=== PATIENT | female | born 1985 | race Caucasian/White ===

== ENCOUNTER 2017-04-07 19:45 | Observation (INO) | payer MEDICAID ==
[~2017-04-07 19:45] MED LIST: ALPR1TAB2 PO; PREN-125 OR; VENL25TA2 PO
== END 2017-04-07 21:13 | disposition home or self-care (01) | DRG 566 ==
LOC: LDRP 19:45
PROVIDERS: ADMIT Specialist; ATTEND Specialist
DX: O62.9 Abnormality of forces of labor, unspecified (principal); O26.893 Other specified pregnancy related conditions, third trimester; R42 Dizziness and giddiness; R10.30 Lower abdominal pain, unspecified; Z3A.33 33 weeks gestation of pregnancy
CPT/HCPCS: 59025; 76815; 80307; 81002; G0378

== ENCOUNTER 2017-04-19 13:20 | Observation (INO) | payer MEDICAID | END 2017-04-19 15:05 | disposition home or self-care (01) | DRG 566 | LOC: LDRP 13:20 | PROVIDERS: ADMIT Specialist; ATTEND Specialist | DX: O36.8130 Decreased fetal movements, third trimester, not applicable or unspecified (principal); Z3A.35 35 weeks gestation of pregnancy | CPT/HCPCS: 59025; 76818; 81002; G0378 ==

== ENCOUNTER 2017-04-28 10:35 | Observation (INO) | payer MEDICAID | END 2017-04-28 11:45 | disposition home or self-care (01) | DRG 563 | LOC: LDRP 10:35 | PROVIDERS: ADMIT Specialist; ATTEND Specialist | DX: O60.03 Preterm labor without delivery, third trimester (principal); Z87.891 Personal history of nicotine dependence; Z3A.36 36 weeks gestation of pregnancy | CPT/HCPCS: 59025; 81002; G0378 ==

== ENCOUNTER 2017-05-04 11:00 | Observation (INO) | payer MEDICAID | END 2017-05-04 12:00 | disposition home or self-care (01) | DRG 563 | LOC: LDRP 11:00 | PROVIDERS: ADMIT Obstetrics & Gynecology; ATTEND Obstetrics & Gynecology | DX: O60.03 Preterm labor without delivery, third trimester (principal); Z3A.37 37 weeks gestation of pregnancy | CPT/HCPCS: 59025; 81002; G0378 ==

== ENCOUNTER 2018-08-08 11:50 | Emergency (ER) | payer MEDICAID ==
[~2018-08-08] VITALS: Ht 160 cm; Wt 84.4 kg
[~2018-08-08 11:50] MED LIST changes: -VENL25TA2 PO
[2018-08-08 12:53] LABS: Urine Bacteria NONE SEEN /hpf (None Seen); Urine Blood Negative /uL (Negative); Urine Mucus FEW (None Seen); Urine Specific Gravity 1.021 (1.001-1.035); Urine WBC 3 /hpf (0 - 5)
[2018-08-08 13:27] LABS: Basophils # (auto) 0 uL; Basophils % (auto) 0.4 % (0.0-2.0); Eosinophils # (auto) 0.2 uL; Eosinophils % (auto) 5.4 % (0.0-7.0); Hematocrit 39.6 % (36.0-46.0); Hemoglobin 13.8 g/dL (12.2-16.2); Lymphocytes % (auto) 22.9 % (10.0-50.0); Mean Corpuscular Hemoglobin 30.9 pg (28.0-32.0); Mean Corpuscular Hgb Conc. 34.9 g/dL (32.0-36.0); Mean Corpuscular Volume 88.4 fL (80.0-100.0); Monocytes # (auto) 0.3 uL; Neutrophils # (auto) 2.7 uL; Neutrophils % (auto) 65.3 % (37.0-80.0); Nucleated Red Blood Cells % 0.1 %; Platelet Count (auto) 177 10^3/uL (140-450); Red Blood Cells 4.48 10^6/uL (4.0-5.20); Red Cell Distribution Width 12.4 % (11.8-14.3); White Blood Cell 4.2 10^3/uL (4.4-10.8)
[2018-08-08 13:45] LABS: Chloride 104 mmol/L (98-107); Potassium 3.7 mmol/L (3.5-5.1); Sodium 137 mmol/L (136-145)
[2018-08-08 13:55] LABS: Alanine Aminotransferase 16 U/L (13-56); Albumin 3.7 g/dL (3.4-5.0); Alkaline Phosphatase 82 U/L (45-117); Anion Gap 4 (5-15); Aspartate Aminotransferase 15 U/L (15-37); BUN/Creatinine Ratio 20.3; Bilirubin, Total 0.6 mg/dL (0.2-1.0); Blood Urea Nitrogen 16 mg/dL (7-18); Calcium 8.5 mg/dL (8.5-10.1); Carbon Dioxide 29 mmol/L (21-32); GFR African American 108 mL/min; GFR Non-African American 90 mL/min; Glucose 75 mg/dL (74-106); Magnesium 1.7 mg/dL (1.6-2.6); Total Protein 7.5 g/dL (6.4-8.2)
[2018-08-08 16:30] VITALS: BP 104/71
== END 2018-08-08 17:05 | disposition home or self-care (01) ==
LOC: ER 11:57
DX: N39.0 Urinary tract infection, site not specified (principal); R11.0 Nausea; K21.9 Gastro-esophageal reflux disease without esophagitis; F17.210 Nicotine dependence, cigarettes, uncomplicated; F12.90 Cannabis use, unspecified, uncomplicated; Z79.899 Other long term (current) drug therapy
CPT/HCPCS: 36415; 71046; 80053; 81001; 81025; 83735; 84484; 85025; 93005

== ENCOUNTER → 2018-08-16 | Emergency (ER) | payer MEDICAID ==
[~2018-08-16] VITALS: Ht 160 cm; Wt 85.3 kg
[2018-08-16 22:08] VITALS: BP 117/74
[2018-08-16 22:27] LABS: Urine Bacteria FEW /hpf (None Seen); Urine Blood Negative /uL (Negative); Urine Specific Gravity 1.018 (1.001-1.035); Urine WBC 10 /hpf (0 - 5)
[2018-08-16 22:43] LABS: Basophils # (auto) 0 uL; Basophils % (auto) 0.3 % (0.0-2.0); Eosinophils # (auto) 0.3 uL; Hematocrit 38.9 % (36.0-46.0); Hemoglobin 13.8 g/dL (12.2-16.2); Lymphocytes # (auto) 1.1 uL; Lymphocytes % (auto) 20.2 % (10.0-50.0); Mean Corpuscular Hemoglobin 31.4 pg (28.0-32.0); Mean Corpuscular Hgb Conc. 35.6 g/dL (32.0-36.0); Mean Corpuscular Volume 88.2 fL (80.0-100.0); Monocytes # (auto) 0.4 uL; Monocytes % (auto) 6.6 % (0.0-12.0); Neutrophils # (auto) 3.8 uL; Neutrophils % (auto) 67.9 % (37.0-80.0); Nucleated Red Blood Cells % 0.1 %; Platelet Count (auto) 174 10^3/uL (140-450); Red Blood Cells 4.41 10^6/uL (4.0-5.20); Red Cell Distribution Width 12.7 % (11.8-14.3); White Blood Cell 5.6 10^3/uL (4.4-10.8)
[2018-08-16 22:51] LABS: Albumin 3.9 g/dL (3.4-5.0); BUN/Creatinine Ratio 24.4; Potassium 4.3 mmol/L (3.5-5.1)
[2018-08-16 22:54] LABS: Bilirubin, Total 0.3 mg/dL (0.2-1.0); Total Protein 7.7 g/dL (6.4-8.2)
== END | disposition left against medical advice (07) ==
LOC: ER 21:28
DX: R10.9 Unspecified abdominal pain (principal); Z53.21 Procedure and treatment not carried out due to patient leaving prior to being seen by health care provider
CPT/HCPCS: 36415; 74176; 80053; 81001; 84702; 85025

== ENCOUNTER → 2020-01-03 | Emergency (ER) | payer MEDICAID ==
[~2020-01-03] VITALS: Ht 160 cm; Wt 85.7 kg
[2020-01-03 19:43] VITALS: BP 107/82
== END | disposition home or self-care (01) ==
LOC: ER 15:55
DX: J06.9 Acute upper respiratory infection, unspecified (principal); K21.9 Gastro-esophageal reflux disease without esophagitis; Z20.828 Contact with and (suspected) exposure to other viral communicable diseases
CPT/HCPCS: 71045; 87635

== ENCOUNTER 2023-05-22 23:20 | Emergency (ER) | payer MEDICAID ==
[~2023-05-22] VITALS: Ht 160 cm; Wt 91.4 kg
[2023-05-23 00:12] VITALS: BP 128/65; PULSE 72; RESP 16; TEMP 97.3; O2SAT 98
[2023-05-23] MEDS ORDERED: methylPREDNISolone SOD SUCC 125 MG/2 ML VL IM ONE (00:15)
[2023-05-23] MEDS ORDERED: diphenhdrAMINE HCL 50 MG/1 ML VL IM ONE (00:15)
[2023-05-23] MEDS ORDERED: FAMOTIDINE 20 MG TAB PO ONE (00:15)
[2023-05-23] MEDS ORDERED: PRED20TA2 PO (01:25)
[2023-05-23] MEDS ORDERED: DIPH25CA66 PO (01:25)
[2023-05-23] MEDS ORDERED: FAMO20TA10 PO (01:25)
== END 2023-05-23 02:35 | disposition home or self-care (01) ==
LOC: ER 23:20
DX: T78.40XA Allergy, unspecified, initial encounter (principal); R22.0 Localized swelling, mass and lump, head; K21.9 Gastro-esophageal reflux disease without esophagitis; F12.10 Cannabis abuse, uncomplicated; Z88.6 Allergy status to analgesic agent; X58.XXXA Exposure to other specified factors, initial encounter
CPT/HCPCS: 96372; 99284; J1200; J2930

== ENCOUNTER 2024-08-23 14:51 | Emergency (ER) | payer MEDICAID ==
[~2024-08-23] VITALS: Ht 160 cm; Wt 100.9 kg
[~2024-08-23 14:51] MED LIST changes: +DIPH25CA66 PO; +FAMO20TA10 PO; +PRED20TA2 PO
--- NOTE | 2024-08-23 15:42 | DVH ---
EXAM: CT HEAD WITHOUT CONTRAST INDICATION: HANNA TECHNIQUE: CT of the head without intravenous contrast. Radiation Dose Information: CT Dose: CTDI volume is 54.28 mGy. Dose-length product is 1069.7 mGy*cm The dose indicators for CT are the volume Computed Tomography (CT) Dose Index (CTDIvol) and the Dose Length Product (DLP), and are measured in units of mGy and mGy-cm, respectively. These indicators are not patient dose, but values generated from the CT scanner acquisition factors. The report includes radiation exposure data for exposures received during this examination. COMPARISON: None FINDINGS: There is no evidence of acute intracranial hemorrhage, extra-axial collection, mass effect, midline s hift, herniation or hydrocephalus. The ventricles, sulci and cisterns are age appropriate. The aguilera-white differentiation is intact. Patchy periventricular and subcortical white matter hypoattenuation is nonspecific but may be related to small vessel ischemic disease. Minimal mucosal thickening floor of the left maxillary sinus and mastoid air cells are clear. The surrounding soft tissues and osseous structures are unremarkable. IMPRESSION: 1. No acute intracranial hemorrhage 2. No CT findings of territorial ischemia. 3. No intracranial mass 4. Mucosal thickening floor of the left maxillary sinus. HS:Y
--- NOTE | 2024-08-23 15:51 | ED.PDOC ---
HPI (NEURO) HPI Comments 39Y F presents to ED for chief complaint headache [id number] with neck pain. Current pain level 6/10; worst pain level 9/10. Pt was initially seen at [facility] but they referred her to ED for head CT due to FHx brain tumors. No other symptoms reported. Chief Complaint: Headache Time Seen by MD: 15:07 Primary Care Provider: SAIMA Calderon Notes: Nurses Notes, Medications, Allergies Information Source: Patient Mode of Arrival: Ambulatory Severity: Mild Dizziness/Weakness Severity: Does not affect activitie Headache Severity: Mild Timing: Weeks Duration: Since onset Headache Quality: Other Onset: At rest Circumstances: Spontaneous Symptoms: None History of: None Modifying factors: Nothing Associated Signs and Symptoms: Headache, Neck Pain Past Medical History PAST MEDICAL HISTORY: Anxiety, GERD Surgical History: Denies all surgeries WING COMMANDER 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: No 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 History Family History Family History: Family hx of HTN Family History (Other): Multiple Sclerosis, Celiac, Brain tumor Social History Smoker: Non-Smoker Alcohol: Occasionally Drugs: Marijuana Lives In: Home Constitutional: denies: chills, diaphoresis, fatigue, fever, malaise, sweats, weakness, others EENTM: denies: blurred vision, double vision, ear bleeding, ear discharge, ear drainage, ear pain, ear ringing, eye pain, eye redness, hearing loss, mouth pa in, mouth swelling, nasal discharge, nose bleeding, nose congestion, nose pain, photophobia, tearing, throat pain, throat swelling, voice changes, others Respiratory: denies: cough, hemoptysis, orthopnea, SOB at rest, shortness of breath, SOB with excertion, stridor, wheezing, others Cardiovascular: denies: chest pain, dizzy spells, diaphoresis, Dyspnea on exertion, edema, irregular heart beat, left arm pain, lightheadedness, palpitations, PND, syncope, others Gastrointestinal: denies: abdomen distended, abdominal pain, blood streaked bowels, constipated, diarrhea, dysphagia, difficulty swallowing, hematemesis, melena, nausea, poor appetite, poor fluid intake, rectal bleeding, rectal pain, vomiting, others Genitourinary: denies: abnormal vagina bleeding, burning, dyspareunia, dysuria, flank pain, frequency, hematuria, incontinence, pain, , vagina discharge, urgency, others Neurological: reports: headache; denies: dizziness, fainting, left sided numbness, left sided weakness, numbness, paresthesia, pre-existing deficit, right sided numbness, right sided weakness, seizure, speech problems, tingling, tremors, weakness, others Musculoskeletal: reports: neck pain; denies: back pain, gout, joint pain, joint swelling, muscle pain, muscle stiffness, others Integumetry: denies: bruises, change in color, change in hair/nails, dryness, laceration, lesions, lumps, rash, wounds, others Allergic/Immunocompromised: denies: Difficulty Healing, Frequent Infections, Hives, Itching, others Hematologic/Lymphatic: denies: anemia, blood clots, easy bleeding, easy bruising, swollen glands, others Endocrine: denies: excessive hunger, excessive sweating, excessive thirst, excessive urination, flushing, intolerance to cold, intolerance to heat, unexplained weight gain, unexplained weight loss, others Psychiatric: denies: anxiety, bipolar disorder, depression, hopeless, panic di sorder, schizophrenia, sleepless, suicidal, others All Other Systems: Reviewed and Negative Physical Exam General Appearance: No Apparent Distress, Normal HEENT: Normal ENT Inspection, Pharynx Normal, TMs Normal Neck: Full Range of Motion, Non-Tender, Normal, Normal Inspection Respiratory: Chest Non-Tender, Lungs Clear, No Accessory Muscle Use, No Respiratory Distress, Normal Breath Sounds Cardiovascular: No Edema, No JVD, No Murmur, No Gallop, Normal Peripheral Pulses, Regular Rate/Rhythm Breast Exam: Deferred Gastrointestinal: No Organomegaly, Non Tender, No Pulsatile Mass, Normal Bowel Sounds, Soft Genitalia: Deferred Pelvic: Deferred Rectal: Deferred Extremities: No calf tenderness, Normal capillary refill, Normal inspection, Normal range of motion, Non-tender, No pedal edema Musculoskeletal : Apperance: Normal Neurologic: Alert, business analytics faculty member II-XII nml as Tested, No Motor Deficits, Normal Affect, Normal Mood, No Sensory Deficits Cerebellar Function: Normal Reflexes: Normal Skin: Dry, Normal Color, Warm Lymphatic: No Adenopathy Was a procedure done? Was a procedure done?: No Differential Diagnosis (SZ) Seizure: N/A General Weakness: N/A X-Ray, Labs, Meds, VS Vital Signs Date Time Temp Pulse Resp B/P (MAP) Pulse Ox O2 Delivery O2 Flow Rate FiO2 08/23/24 16:12 67 17 96 Room Air* 0 21 08/23/24 16:02 67 17 96 Room Air 08/23/24 16:02 97.8 67 17 131/85 (100) 96 97.8 08/23/24 15:13 98.5 85 18 124/67 (86) 100 Current Medications Medications (Trade) Dose Ordered Sig/Vandana Route Start Time Stop Time Status Last Admin Ketorolac Tromethamine (Toradol Injection) 30 mg ONCE ONCE IM 08/23/24 15:15 08/23/24 15:16 DC 08/23/24 15:57 Prochlorperazine Edisylate (Compazine Inj) 5 mg ONCE ONCE IM 08/23/24 15:15 08/23/24 15:16 DC 08/23/24 15:55 [place] [id number] Ph: [phone] DIAGNOSTIC IMAGING Diagnostic Imaging Report : [id number] Signed PATIENT: JATIN DAVE ACCT: [id number] UNIT: [id number] : 1985 LOC: ER ROOM / BED: / AGE / SEX: 39 / F ADM STATUS: REG ER SERVICE [id number] ORDERING PHYSICIAN: NEY GUERRA PROCEDURE(s): HWOCT - HEAD WITHOUT CONTRAST REASON: HANNA ORDER NUMBER(s): [id number], ACCESSION NUMBER(s): [id number] EXAM: CT HEAD WITHOUT CONTRAST INDICATION: HANNA TECHNIQUE: CT of the head without intravenous contrast. Radiation Dose Information: CT Dose: CTDI volume is 54.28 mGy. Dose-length product is 1069.7 mGy*cm The dose indicators for CT are the volume Computed Tomography (CT) Dose Index (CTDIvol) and the Dose Length Product (DLP), and are measured in units of mGy and mGy-cm, respectively. These indicators are not patient dose, but values generated from the CT scanner acquisition factors. The report includes radiation exposure data for exposures received during this examination. COMPARISON: None FINDINGS: There is no evidence of acute intracranial hemorrhage, extra-axial collection, mass effect, midline shift, herniation or hydrocephalus. The ventricles, sulci and cisterns are age appropriate. The aguilera-white differentiation is intact. Patchy periventricular and subcortical white matter hypoattenuation is nonspecific but may be related to small vessel ischemic disease. Minimal mucosal thickening floor of the left maxillary sinus and mastoid air cells are clear. The surrounding soft tissues and osseous structures are unremarkable. IMPRESSION: 1. No acute intracranial hemorrhage 2. No CT findings of territorial ischemia. 3. No intracranial mass 4. Mucosal thickening floor of the left maxillary sinus. HS:Y ATED BY: REMI BRIONES Jr., DO DICTATED DATE/TIME: 08/23/24 1540 SIGNED BY: REMI BRIONES Jr., SIGNED DATE/TIME: 08/23/24 1540 CC: X-Ray, Labs, Meds, VS Comment Imaging: X-rays and CT scans were reviewed and interpreted by this provider, imaging shows no fractures and no pathological disease. Pending radiology review. Laboratory: Labs reviewed and interpreted by this provider. No significant abnormalities noted. Patient has prior medical visits reviewed. Med reconciliation performed Vital signs reviewed Time of 1ST Reevaluation: 15:40 Reevaluation 1ST: Unchanged Patient Education/Counseling: Diagnosis, Treatment, Prognosis, Need For Follow Up (Patient advised to follow-up in the emergency room in the next 24 to 48 hours if symptoms do not improve. Advised follow-up with PCP in the next 3 to 5 days. Patient verbalized understanding. ) Family Education/Counseling: No Family Present Departure 1 Departure Time of Disposition: 16:21 Impression: Primary Impression: Tension headache Disposition: 01 HOME / SELF CARE / HOMELESS Condition: Fair e-Prescriptions Cyclobenzaprine Hcl (Cyclobenzaprine Hcl) 5 Mg Tab 1 TAB PO TID, #30 TAB Prov: NEY GUERRA 08/23/24 Discharged With: Self Critical Care Note Critical Care Time?: No Stability Stability form required: No Heart Score Heart Score: Heart Score Response (Comments) Value History N/A 0 EKG N/A 0 Age N/A 0 Risk Factors N/A 0 Troponin N/A 0 Total 0 I personally scribed for NEY GUERRA ([email or web address]) on 08/23/24 at 15:56. Electronically submitted by Michelle Jolly ([facility]). I personally scribed for NEY GUERRA ([facility]) on 08/23/24 at 15:57. Electronically submitted by Michelle Jolly ([facility]). NEY GUERRA Aug 23, 2024 15:51
[2024-08-23] MEDS: PROCHLORPERAZINE EDISYLATE 5 MG/ML 2ML VIAL IM ONE (15:55)
[2024-08-23] MEDS: KETOROLAC TROMETH 30 MG/ML 1ML VIAL IM ONE (15:57)
[2024-08-23 16:02] VITALS: BP 131/85; TEMP 97.8
[2024-08-23 16:12] VITALS: PULSE 67; RESP 17; O2SAT 96
[2024-08-23] MEDS ORDERED: CYCL-837 PO (16:21)
== END 2024-08-23 16:51 | disposition home or self-care (01) ==
LOC: ER 14:51
DX: G44.209 Tension-type headache, unspecified, not intractable (principal); F41.9 Anxiety disorder, unspecified; K21.9 Gastro-esophageal reflux disease without esophagitis; M54.2 Cervicalgia
CPT/HCPCS: 70450; 96372; 99285; J0780; J1885